=== PATIENT | female | born 1985 | race Caucasian/White ===

== ENCOUNTER → 2019-04-06 | Outpatient (CLI) | payer OTHER ==
--- NOTE | 2019-04-06 17:33 | Diagnostic Imaging Report ---
EXAMINATION: RIBS UNILAT W/CXR, CHEST 2 VIEWS INDICATION: Right rib pain COMPARISON: None FINDINGS: LINES/TUBES:None LUNGS:The lungs are well-inflated. No focal consolidation or pulmonary edema. PLEURA:No pleural effusion or pneumothorax. MEDIASTINUM:The cardiomediastinal silhouette appears normal in size and shape. BONES/SOFT TISSUES:No displaced rib fractures. S-shaped curvature of the thoracolumbar spine with dextroconvex curvature of the thoracic spine and levoconvex curvature of the upper lumbar spine. ABDOMEN:No free air under the diaphragm. IMPRESSION: No displaced rib fractures. Scoliosis of the thoracolumbar spine as above. No focal pneumonia or pulmonary edema. Signed by: Irina Madison MD on 04/06/2019 5:29 PM
== END ==
LOC: RAD 16:29
PROVIDERS: ATTEND Internal Medicine
DX: S23.41XA Sprain of ribs, initial encounter (principal); R06.02 Shortness of breath
CPT/HCPCS: 71046; 71101; 81025